=== PATIENT | male | born 1955 | race Caucasian/White ===

== ENCOUNTER 2016-09-30 15:09 | Inpatient (IN) | payer OTHER, MEDICARE ==
--- NOTE | 2016-09-30 15:49 | Diagnostic Imaging Report ---
CHEST X-RAY: AP view INDICATION: Chest pain COMPARISON: None FINDINGS: There is elevation of the right hemidiaphragm. There is no focal consolidation or pleural effusions The heart is normal in size. The osseous structures demonstrate no acute abnormalities. IMPRESSION: No focal acute pulmonary process.
[2016-09-30 16:13] LABS: % BASOPHILS 1.5 % (0.0-2.0); % EOSINOPHILS 0.2 % (0.0-5.0); % LYMPHOCYTES 24.8 % (20.0-50.0); % MONOCYTES 4.4 % (2.0-10.0); % NEUTROPHILS 69.1 % (40.0-80.0); HEMATOCRIT 48.3 % (39.0-49.0); HEMOGLOBIN 16.4 gm/dL (13.2-17.3); MEAN CELL VOLUME 88.7 fl (80-99); MEAN CORPUSCULAR HEMOGLOBIN 30.1 pg (26.0-30.0); MEAN PLATELET VOLUME 7.1 fl; NEUTROPHILE ABSOLUTE 5.7 Th/cmm (1.8-8.0); PLATELET COUNT 336 Th/cmm (150-400); RED BLOOD COUNT 5.44 Mil/cmm (4.30-5.70); RED CELL DISTRIBUTION WIDTH 12.5 % (11.5-20.0); WHITE BLOOD COUNT 8.2 Th/cmm (4.8-10.8)
--- NOTE | 2016-09-30 16:19 | ED Physician Chart ---
Chief Complaint/HPI - Patient Information Date Seen:: 09/30/16 Time Seen:: 16:00 Chief Complaint:: back pain History of Present Illness:: THIS IS A 61 YO MALE BIB EMS WITH RECURRENT SEVERE LOWER BACK PAIN. HE HAS A HISTORY MULTIPLE LEVEL OF LOWER BACK DISC DISEASE. THE PATIENT WAS SEEN A FEW DAYS AGO AT ANOTHER HOSPITAL GIVEN PAIN MEDS AND SENT HOME. THE PATIENT STATES THAT HE HAS HAD CONSTIPATION EVERY SINCE. THIS PATIENT HAS HAD A SIGNIFICANT PROBLEM WITH URINARY WITH HEMATURIA. Allergies:: Allergies Allergy/AdvReac Type Severity Reaction Status Date / Time No Known Allergies Allergy Verified 09/30/16 15:50 Vitals:: Vital Signs - 8 hr 09/30/16 15:51 Temp 97.6 F HR 97 RR 18 BP 124/88 O2 Sat % 99 Historian:: Patient Review:: Nurse's Note Reviewed <Dion Harris - Last Filed: 09/30/16 19:32> - Patient Information Allergies:: Allergies Allergy/AdvReac Type Severity Reaction Status Date / Time No Known Allergies Allergy Verified 09/30/16 15:50 Vitals:: Vital Signs - 8 hr 09/30/16 09/30/16 15:51 18:27 Temp 97.6 F HR 97 70 RR 18 16 BP 124/88 120/68 O2 Sat % 99 97 <Margarito Moody - Last Filed: 09/30/16 20:13> Review of Systems - Review of Systems General/Constitutional: No fever, No chills, No weight loss, No weakness, No diaphoresis, No edema, No loss of appetite Skin: No skin lesions, No rash, No bruising Head: No headache, No light-headedness Eyes: No loss of vision, No pain, No diplopia ENT: No earache, No nasal drainage, No sore throat, No tinnitus Neck: No neck pain, No swelling, No thyromegaly, No stiffness, No mass noted Cardio Vascular: No chest pain, No palpitations, No PND, No orthopnea, No edema Pulmonary: No SOB, No cough, No sputum, No wheezing GI: No nausea, No vomiting, No diarrhea, No pain, No melena, No hematochezia, No constipation, No hematemesis G/U: No dysuria, No frequency, No hematuria Musculoskeletal: Bone or joint pain, Back pain, No muscle pain Endocrine: No polyuria, No polydipsia Psychiatric: No prior psych history, No depression, No anxiety, No suicidal ideation Hematopoietic: No bruising, No lymphadenopathy Allergic/Immuno: No urticaria, No angioedema Neurological: No syncope, No focal symptoms, No weakness, No paresthesia, No headache, No seizure, No dizziness, No confusion, No vertigo <Dion Harris Filed: 09/30/16 19:32> Past Medical History - Past Medical History Obtainable: Yes Past Medical History: HTN, Arthritis Family History: None Social History: Non Smoker, No Alcohol, No Drug Use Surgical History: Appendectomy, Hernia Psychiatricy History: None Medication: Reviewed <Dion Harris Filed: 09/30/16 19:32> Family Medical History - Family Member Mother History Unknown: Yes <Dion Harris Filed: 09/30/16 19:32> Physical Exam - Physical Examination General/Constitutional: Awake, Well-developed, well-nourished, Alert, No distress, GCS 15, Non-toxic appearing, Ambulatory Head: Atraumatic Eyes: Lids, conjuctiva normal, PERRL, EOMI Skin: Nl inspection, No rash, No skin lesions, No ecchymosis, Well hydrated, No lymphadenopathy ENMT: External ears, nose nl, Nasal exam nl, Lips, teeth, gums nl Neck: Nontender, Full ROM w/o pain, No JVD, No nuchal rigidity, No bruit, No mass, No stridor Respiratory: Nl effort/Exclusion, Clear to Auscultation, No Wheeze/Rhonchi/Rales Cardio Vascular: RRR, No murmur, gallop, rubs, NL S1 S2 GI: No tenderness/rebounding/guarding, No organomegaly, No hernia, Normal BS's, Nondistended, No mass/bruits, No McBurney tenderness : No CVA tenderness Extremities: No tenderness or effusion, Full ROM, normal strength in all extremities, No edema, Normal digits & nails Neuro/Psych: Alert/oriented, DTR's symmetric, Normal sensory exam, Normal motor strength, Judgement/insight normal, Mood normal, Normal gait, No focal deficits Misc: No paraspinal tenderness Other Misc comments:: TENDERNESS IN THE LOWER BACK <Dion Harris Filed: 09/30/16 19:32> Labs/Radiology/EKG Results - Lab Results Results: Laboratory Tests 09/30/16 09/30/16 09/30/16 15:48 15:55 15:55 WBC 8.2 RBC 5.44 Hgb 16.4 Hct 48.3 MCV 88.7 MCH 30.1 H MCHC Differential 34.0 RDW 12.5 Plt Count 336 MPV 7.1 Neutrophils % 69.1 Lymphocytes % 24.8 Monocytes % 4.4 Eosinophils % 0.2 Basophils % 1.5 PT 10.7 INR 1.03 PTT (Actin FS) 25.2 L Sodium Potassium Chloride Carbon Dioxide Anion Gap BUN Creatinine Est GFR ( Amer) Est GFR (Non-Af Amer) BUN/Creatinine Ratio Glucose Calcium Total Bilirubin AST ALT Alkaline Phosphatase Troponin I Total Protein Albumin Globulin Albumin/Globulin Ratio Triglycerides 72 Cholesterol 281 H LDL Cholesterol Direct 259 H HDL Cholesterol 32 TSH Urine Source Urine Color Urine Clarity Urine pH Ur Specific [place] Urine Protein Urine Glucose (UA) Urine Ketones Urine Blood Urine Nitrate Urine Bilirubin Urine Urobilinogen Ur Leukocyte Esterase Urine RBC Urine WBC Ur Epithelial Cells Urine Bacteria Urine Mucus RPR 09/30/16 09/30/16 09/30/16 15:55 15:55 15:55 WBC RBC Hgb Hct MCV MCH MCHC Differential RDW Plt Count MPV Neutrophils % Lymphocytes % Monocytes % Eosinophils % Basophils % PT INR PTT (Actin FS) Sodium 134 L Potassium 3.5 Chloride 99 Carbon Dioxide 19.8 L Anion Gap 18.7 H BUN 18 Creatinine 0.7 Est GFR ( Amer) > 60.0 Est GFR (Non-Af Amer) > 60.0 BUN/Creatinine Ratio 25.7 Glucose 93 Calcium 9.1 Total Bilirubin 1.0 AST 10 L ALT 11 Alkaline Phosphatase 60 Troponin I 0.02 Total Protein 7.6 Albumin 4.5 Globulin 3.1 Albumin/Globulin Ratio 1.5 Triglycerides Cholesterol LDL Cholesterol Direct HDL Cholesterol TSH 1.25 Urine Source Urine Color Urine Clarity Urine pH Ur Specific [place] Urine Protein Urine Glucose (UA) Urine Ketones Urine Blood Urine Nitrate Urine Bilirubin Urine Urobilinogen Ur Leukocyte Esterase Urine RBC Urine WBC Ur Epithelial Cells Urine Bacteria Urine Mucus RPR 09/30/16 09/30/16 15:55 18:05 WBC RBC Hgb Hct MCV MCH MCHC Differential RDW Plt Count MPV Neutrophils % Lymphocytes % Monocytes % Eosinophils % Basophils % PT INR PTT (Actin FS) Sodium Potassium Chloride Carbon Dioxide Anion Gap BUN Creatinine Est GFR ( Amer) Est GFR (Non-Af Amer) BUN/Creatinine Ratio Glucose Calcium Total Bilirubin AST ALT Alkaline Phosphatase Troponin I Total Protein Albumin Globulin Albumin/Globulin Ratio Triglycerides Cholesterol LDL Cholesterol Direct HDL Cholesterol TSH Urine Source CLEAN C Urine Color DARK YELLOW Urine Clarity HAZY Urine pH 5.5 Ur Specific [place] Urine Protein 30 H Urine Glucose (UA) NEGATIVE Urine Ketones >=80 H Urine Blood MODERATE H Urine Nitrate NEGATIVE Urine Bilirubin MODERATE H Urine Urobilinogen 0.2 Ur Leukocyte Esterase NEGATIVE Urine RBC 50-100 H Urine WBC 0-2 Ur Epithelial Cells FEW Urine Bacteria FEW Urine Mucus FEW RPR NONREACTIVE <Margarito Moody - Last Filed: 09/30/16 20:13> ED Septic Shock - . Is Septic Shock (SBP<90, OR Lactate>4 mmol\L) present?: No - <6hrs of presentation: Vital Signs: Vital Signs - 8 hr 09/30/16 15:51 Temp 97.6 F HR 97 RR 18 BP 124/88 O2 Sat % 99 <Dion Harris - Last Filed: 09/30/16 19:32> - . Is Septic Shock (SBP<90, OR Lactate>4 mmol\L) present?: No - <6hrs of presentation: Vital Signs: Vital Signs - 8 hr 09/30/16 09/30/16 15:51 18:27 Temp 97.6 F HR 97 70 RR 18 16 BP 124/88 120/68 O2 Sat % 99 97 <Margarito Moody - Last Filed: 09/30/16 20:13> Reassessment (Disposition) - Reassessment Reassessment:: Patient had left nm at change of shift. Acute urinary retention most likely due to enlarged prostate. No sign of infection. Lopes in place. Discussed case with admitting physician. Patient admitted for further workup and treatment. Reassessment Condition:: Improved - Diagnosis Diagnosis:: Acute urinary retention Acute low back pain - Aftercare/Follow up Instructions Aftercare/Follow-Up Instructions:: Counseled pt regarding lab results/diagnosis & need follow up, Refer to Discharge Instructions - Patient Disposition Discharge/Transfer:: Home Admitted to:: Med/Surg Time:: 20:13 Condition at Disposition:: Improved <Margarito Moody - Last Filed: 09/30/16 20:13>
[2016-09-30 16:34] LABS: INR 1.03 (0.5-1.4); PROTHROMBIN TIME (TEST) 10.7 SECONDS (9.5-11.5)
[2016-09-30 16:38] LABS: ALB/GLOB RATIO 1.5 (1.0-1.8); ALKALINE PHOSPHATASE 60 U/L (34-104); ANION GAP 18.7 (7.0-16.0); BUN - UREA NITROGEN 18 mg/dL (7-25); BUN/CREATININE RATIO 25.7; CALCIUM SERUM 9.1 mg/dL (8.6-10.3); CARBON DIOXIDE 19.8 mEq/L (21.0-31.0); CHLORIDE 99 mEq/L (98-107); CREATININE - SERUM 0.7 mg/dL (0.7-1.3); GLUCOSE 93 mg/dL (70-105); POTASSIUM SERUM 3.5 mEq/L (3.5-5.1); SGOT 10 U/L (13-39); SGPT/ALT 11 U/L (7-52); SODIUM SERUM 134 mEq/L (136-145)
[2016-09-30 17:05] LABS: CHOLESTEROL 281 mg/dL (<200); TRIGLYCERIDES 72 mg/dL (<150)
[2016-09-30] MEDS ORDERED: Sodium Chloride 0.9% 1,000 ML IV ONE (18:01)
[2016-09-30 18:49] LABS: URINE BILIRUBIN MODERATE (NEGATIVE); URINE COLOR DARK YELLOW; URINE GLUCOSE (UA) NEGATIVE (NEGATIVE); URINE KETONE >=80 mg/dL (NEGATIVE)
[2016-09-30 18:50] LABS: URINE BACTERIA FEW /hpf (NONE SEEN); URINE BLOOD MODERATE (NEGATIVE); URINE EPITHELIAL CELLS FEW /lpf (FEW); URINE PH 5.5; URINE PROTEIN 30 mg/dL (NEGATIVE); URINE RBC 50-100 /hpf (0-5); URINE UROBILINOGEN 0.2 E.U./dL (0.2 - 1.0); URINE WBC 0-2 /hpf (0-5)
--- NOTE | 2016-09-30 22:02 | Admit Criteria Form ---
Admit Criteria Forms - Admit Criteria Diagnosis: UROLOGIC DISEASE [facility] Clinical Indications for Admission to Inpatient Care (Place ' X' for any and all applicable criteria): Hospital admission is needed for appropriate care of the patient because of 1 or more of the following: [ ]I. New-onset Reduced urine output, or hydronephrosis remaining after emergency or observation level care (as appropriate ) [ ]II. Renal disease needing inpatient care indicated by 1 or more of the following(2)(3)(4): [ ]a) Acute renal failure [ ]b) Significant uremic complications [ ]c) Acute kidney injury (that does not qualify as Acute renal failure ) requiring inpatient care indicated by ALL of the following(5)(6)(7)(8) (9): [ ]i) Worsening clinical status (eg, rising creatinine) despite outpatient and observation care treatment (eg, hydration) [ ]ii) Acute kidney injury indicated by 1 or more of the following: [ ]1) 2-fold or more rise in serum creatinine from baseline [ ]2) Reduction of more than 50% in estimated glomerular filtration rate from baseline [ ]3) Urine output less than 0.5 mL/kg/hr for 12 hours despite adequate volume status [ ]d) Systemic cause (eg, Goodpasture syndrome ) needing inpatient care [ ]e) Rapidly progressive renal disease needing inpatient care (eg, plasmapheresis, immunosuppression ) Anasarca needing inpatient care [ ]f) Hemoptysis [ ]g) Hemolysis, thrombosis, or infraction [ ]h) Anasarca needing inpatient care [ ]III. New-onset or uncontrolled nephrogenic diabetes insipidus [ ]IV. Urologic infection requiring inpatient care as indicated by 1 or more of the following(10)(11)(12): [ ]a) Hemodynamic instability [ ]b) Dehydration that is severe or persistent [ ]c) Failure of outpatient treatment [ ]d) Porter's gangrene [ ]e) Urinary obstruction [ ]f) Immunocompromised state (eg, chronic steroid use ) [ ]g) Known renal or urologic abnormalities(eg, indwelling catheter, structural abnormalities ) [ ]h) Recent urologic manipulation or procedure Urinary obstruction [ ]i) Abscess requiring drainage Immunocompromised state [X]V. Acute urinary retention requiring inpatient management as indicated by ANY ONE of the following(1)(13): [X]a) Retention cannot be alleviated via emergency or observation level care (eg, urinary catheter placement) [ ]b) Hemodynamic instability [ ]c) Acute neurologic etiology (eg, cauda equina) [ ]d) Dehydration or other complications not manageable with emergency or observation level care [ ]e) Acute kidney injury (that does not qualify as Acute renal failure ) requiring inpatient care indicated by ALL of the following(5)(6)(7)(8) (9): [ ]i) Acute kidney injury indicated by ANY ONE of the following: [ ]1) 2-fold or more rise in serum creatinine from baseline [ ]2) Reduction of more than 50% in estimated glomerular filtration rate from baseline [ ]ii) Worsening clinical status (eg, rising creatinine) despite outpatient and observation care treatment (eg, hydration) [ ]. Gross hematuria requiring inpatient management as indicated by ANY ONE of the following(1)(2): [ ]a) Evidence of renal obstruction [ ]b) Reduced urine output [ ]c) Clot retention after urinary catheterization and irrigation [ ]d) Severe Anemia [ ]e) Systemic cause needing inpatient treatment (eg, Goodpasture syndrome) [ ]VII. Priapism not responsive to emergency or observation care treatment [ ]VII. Scrotal, testicular, or epididymal disorder requiring inpatient care indicated by 1 or more of the following(1)(14)(15)(16): [ ]a) Scrotal edema or infection not manageable with emergency or observation level care [ ]b) Orchitis not manageable with emergency or observation level care [ ]c) Epididymitis not manageable with emergency or observation level of care [ ]d) Other scrotal, testicular, or epididymal disorder (eg, infection, inflammation) not manageable with emergency or observation level care [ ]IX. Complications of transplanted kidney indicated by 1 or more of the following [ ]a) Acute graft rejection requiring inpatient management (eg, intravenous immunosuppression) [ ]b) Acute kidney injury indicated by ALL of the following i) Acute kidney injury indicated by 1 or more of the following 1) 2-fold or more rise in serum creatinine from baseline 2) Reduction of more than 50% in estimated glomerular filtration rate from baseline 3) Urine output less than 0.5 mL/kg/hr for 12 hours despite adequate volume status ii) Kidney injury too severe or not responsive to outpatient and observation care treatment (eg, hydration) [ ]c) Infection requiring inpatient management (eg, Hemodynamic instability, need for intravenous antimicrobial treatment) [ ]d) Other complication of transplanted kidney requiring patient management (eg, severe diarrhea leading to malabsorption) [ ]X. Trauma to renal, genital, or urologic system requiring inpatient medical care [ ]XI. Urologic Disease condition, symptom, or finding for which emergency and observation care have failed or are not considered appropriate. The original [facility] [employer] content created by [facility] [employer] has been revised. The portions of the content which have been revised are identified through the use of italic text or in bold, and [facility] has neither reviewed nor approved the modified material. All other unmodified content is copyright [facility] [employer]. Please see references footnoted in the original [facility] [employer] edition 2016 Admit Criteria Met?: Yes
[2016-09-30] MEDS ORDERED: D5-0.45NS 1,000 ML IV SCH (22:15)
[2016-10-01 00:24] VITALS: BP 122/73
[2016-10-01 05:57] LABS: MEAN CELL VOLUME 89.3 fl (80-99)
[2016-10-01 06:02] LABS: HEMATOCRIT 47.2 % (39.0-49.0); MEAN CORPUSCULAR HEMOGLOBIN 30.2 pg (26.0-30.0); MEAN CORPUSCULAR HGB CONC 33.8 pg (28.0-36.0); MEAN PLATELET VOLUME 7.9 fl; RED BLOOD COUNT 5.28 Mil/cmm (4.30-5.70); RED CELL DISTRIBUTION WIDTH 12.7 % (11.5-20.0); WHITE BLOOD COUNT 9.1 Th/cmm (4.8-10.8)
[2016-10-01 06:08] LABS: PLATELET COUNT 200 Th/cmm (150-400)
[2016-10-01 06:10] LABS: ANION GAP 13.5 (7.0-16.0); BUN - UREA NITROGEN 21 mg/dL (7-25); CALCIUM SERUM 8.8 mg/dL (8.6-10.3); CARBON DIOXIDE 19.8 mEq/L (21.0-31.0); CHLORIDE 101 mEq/L (98-107); CREATININE - SERUM 0.7 mg/dL (0.7-1.3); GLUCOSE 115 mg/dL (70-105); POTASSIUM SERUM 3.3 mEq/L (3.5-5.1); SODIUM SERUM 131 mEq/L (136-145)
[2016-10-01 06:39] LABS: EOSINOPHIL 1 % (0-5); NEUTROPHILS 66 % (40-80); PLATELET ESTIMATE ADEQUATE (NORMAL); TOTAL CELLS COUNTED 100
[2016-10-01] MEDS ORDERED: Pneumococcal Vaccine 0.5 mL Vial IM ONE (10:32)
--- NOTE | 2016-10-01 10:59 | Diagnostic Imaging Report ---
CT lumbar spine without IV contrast HISTORY: Trauma COMPARISON: Pelvis CT the same day Technique: Axial images were obtained from the lower thoracic spine to the upper sacrum without IV contrast. Reconstructions were made. total DLP: [id number], [id number] Findings: Images of the lumbar spine obtained without contrast demonstrate no evidence of acute fracture or subluxation. Osteopenia is noted. Moderate degenerative changes are seen including moderate disc space loss of height at L4/L5 and mild disc space loss of height at L2/L3 and L3/L4. Multilevel moderate to advanced facet degenerative changes are noted. There is 3 to 4 mm posterior disc osteophyte complex that L4/L5 causing mild spinal canal narrowing. There is also 3 mm protrusion at L5/S1 causing mild spinal canal narrowing. Multilevel neural foraminal encroachment is also seen secondary to facet arthropathy. The visualized retroperitoneum demonstrates mild atherosclerotic vascular disease. IMPRESSION: No evidence of acute fracture or subluxation. Multilevel degenerative changes, greatest at L4/L5. Osteopenia Atherosclerotic vascular disease.
--- NOTE | 2016-10-01 11:02 | Diagnostic Imaging Report ---
CT pelvis without IV contrast HISTORY: Pain, rule out fracture COMPARISON: CT lumbar spine the same day Technique: Axial images were obtained from the lower abdomen to the proximal bilateral femurs without IV contrast. Reconstructions were made. total DLP: 546, CTDI12.5 Findings: Lopes catheter is seen within the urinary bladder. Pockets of gas are seen along the anterior aspect of the urinary bladder. Small fat-containing left inguinal hernia is noted. Degenerative changes of lower lumbar spine are also noted. Mild degenerative changes of both hip joints are noted. Degenerative changes of SI joints are noted. No evidence of acute fracture or dislocation. IMPRESSION: No evidence of acute fracture. Degenerative changes. Small fat-containing left inguinal hernia. Lopes catheter noted within the urinary bladder. Pockets of gas is also seen along the anterior aspect of the urinary bladder which may be due to instrumentation.
--- NOTE | 2016-10-01 12:09 | Diagnostic Imaging Report ---
Renal ultrasound HISTORY: Hydronephrosis, pyelonephritis COMPARISON: CT lumbar spine on 09/30/2016 Technique: Sonography of the kidneys and urinary bladder was performed in multiple planes. FINDINGS: Exam is limited due to body habitus. The right kidney measures 12.6 x 5.9 cm. The left kidney measures 12.0 x 5.8 cm. There is poor visualization of the renal margins limiting assessment for focal lesions. No evidence of hydronephrosis. Lopes catheter seen within underdistended urinary bladder, limiting its evaluation. The post void residual bladder volume with patient's Lopes catheter 78 mL's. IMPRESSION: Limited exam due to body habitus. No evidence of hydronephrosis Mild increased size of the right kidney, nonspecific Lopes catheter within underdistended urinary bladder. The postvoid residual bladder volume with patient's Lopes catheter was 78 mL's. The significance of this findings should be correlated clinically.
--- NOTE | 2016-10-01 12:10 | Diagnostic Imaging Report ---
Ultrasound pelvic, limited History: BPH Comparison: Renal ultrasound the same day and pelvic CT examination on 09/30/2016 Findings: Sonography of the prostate gland was performed in multiple planes. The prostate gland measures 5.2 x 4.5 x 4.8 cm and demonstrates a heterogeneous echotexture. There is echogenic focus within the prostate gland measuring 9 mm. IMPRESSION: Heterogeneous and mildly prominent prostate gland with echogenic focus likely representing a calcification. Please correlate with clinical findings and PSA levels.
--- NOTE | 2016-10-01 13:23 | General Progress Note ---
Subjective - Review of Systems Service Date: 10/01/16 Subjective: pt is c/o: insomnia no other complaints at this time Objective - Results Result Diagrams: 10/01/16 05:26 10/01/16 05:26 Recent Labs: Laboratory Last Values WBC 9.1 Th/cmm (4.8-10.8) 10/01/16 05:26 RBC 5.28 Mil/cmm (4.30-5.70) 10/01/16 05:26 Hgb 16.0 gm/dL (13.2-17.3) 10/01/16 05:26 Hct 47.2 % (39.0-49.0) 10/01/16 05:26 MCV 89.3 fl (80-99) 10/01/16 05:26 MCH 30.2 pg (26.0-30.0) H 10/01/16 05:26 MCHC Differential 33.8 pg (28.0-36.0) 10/01/16 05:26 RDW 12.7 % (11.5-20.0) 10/01/16 05:26 Plt Count 200 Th/cmm (150-400) D 10/01/16 05:26 MPV 7.9 fl 10/01/16 05:26 Neutrophils % 69.1 % (40.0-80.0) 09/30/16 15:55 Lymphocytes % 24.8 % (20.0-50.0) 09/30/16 15:55 Monocytes % 4.4 % (2.0-10.0) 09/30/16 15:55 Eosinophils % 0.2 % (0.0-5.0) 09/30/16 15:55 Basophils % 1.5 % (0.0-2.0) 09/30/16 15:55 Neutrophils (Manual) 66 % (40-80) 10/01/16 05:26 Lymphocytes 26 % (20-50) 10/01/16 05:26 Monocytes 7 % (2-10) 10/01/16 05:26 Eosinophils 1 % (0-5) 10/01/16 05:26 Platelet Estimate ADEQUATE (NORMAL) 10/01/16 05:26 PT 10.7 SECONDS (9.5-11.5) 09/30/16 15:55 INR 1.03 (0.5-1.4) 09/30/16 15:55 PTT (Actin FS) 25.2 SECONDS (26.0-38.0) L 09/30/16 15:55 Sodium 131 mEq/L (136-145) L 10/01/16 05:26 Potassium 3.3 mEq/L (3.5-5.1) L 10/01/16 05:26 Chloride 101 mEq/L (98-107) 10/01/16 05:26 Carbon Dioxide 19.8 mEq/L (21.0-31.0) L 10/01/16 05:26 Anion Gap 13.5 (7.0-16.0) 10/01/16 05:26 BUN 21 mg/dL (7-25) 10/01/16 05:26 Creatinine 0.7 mg/dL (0.7-1.3) 10/01/16 05:26 Est GFR ( Amer) > 60.0 ml/min (>90) 10/01/16 05:26 Est GFR (Non-Af Amer) > 60.0 ml/min 10/01/16 05:26 BUN/Creatinine Ratio 30.0 10/01/16 05:26 Glucose 115 mg/dL (70-105) H 10/01/16 05:26 Calcium 8.8 mg/dL (8.6-10.3) 10/01/16 05:26 Total Bilirubin 1.0 mg/dL (0.3-1.0) 09/30/16 15:55 AST 10 U/L (13-39) L 09/30/16 15:55 ALT 11 U/L (7-52) 09/30/16 15:55 Alkaline Phosphatase 60 U/L (34-104) 09/30/16 15:55 Troponin I 0.02 ng/mL (0.01-0.05) 09/30/16 15:55 Total Protein 7.6 gm/dL (6.0-8.3) 09/30/16 15:55 Albumin 4.5 gm/dL (4.2-5.5) 09/30/16 15:55 Globulin 3.1 gm/dL 09/30/16 15:55 Albumin/Globulin Ratio 1.5 (1.0-1.8) 09/30/16 15:55 Triglycerides 72 mg/dL (<150) 09/30/16 15:48 Cholesterol 281 mg/dL (<200) H 09/30/16 15:48 LDL Cholesterol Direct 259 mg/dL (75-193) H 09/30/16 15:48 HDL Cholesterol 32 mg/dL (23-92) 09/30/16 15:48 TSH 1.25 uIU/ml (0.34-5.60) 09/30/16 15:55 Urine Source CLEAN C 09/30/16 18:05 Urine Color DARK YELLOW 09/30/16 18:05 Urine Clarity HAZY (CLEAR) 09/30/16 18:05 Urine pH 5.5 09/30/16 18:05 Ur Specific [place] (1.005-1.030) 09/30/16 18:05 Urine Protein 30 mg/dL (NEGATIVE) H 09/30/16 18:05 Urine Glucose (UA) NEGATIVE mg/dL (NEGATIVE) 09/30/16 18:05 Urine Ketones >=80 mg/dL (NEGATIVE) H 09/30/16 18:05 Urine Blood MODERATE (NEGATIVE) H 09/30/16 18:05 Urine Nitrate NEGATIVE (NEGATIVE) 09/30/16 18:05 Urine Bilirubin MODERATE (NEGATIVE) H 09/30/16 18:05 Urine Urobilinogen 0.2 E.U./dL (0.2 - 1.0) 09/30/16 18:05 Ur Leukocyte Esterase NEGATIVE (NEGATIVE) 09/30/16 18:05 Urine RBC 50-100 /hpf (0-5) H 09/30/16 18:05 Urine WBC 0-2 /hpf (0-5) 09/30/16 18:05 Ur Epithelial Cells FEW /lpf (FEW) 09/30/16 18:05 Urine Bacteria FEW /hpf (NONE SEEN) 09/30/16 18:05 Urine Mucus FEW /lpf (FEW) 09/30/16 18:05 RPR NONREACTIVE (NONREACTIVE) 09/30/16 15:55 - Physical Exam Vitals and I&O: Vital Signs Temp 98.2 F 10/01/16 11:39 Pulse 80 10/01/16 11:39 Resp 17 10/01/16 11:39 BP 128/64 10/01/16 11:39 Pulse Ox 98 10/01/16 11:39 Intake & Output 04/10/01/16 10/01/16 18:59 06:59 18:59 Intake Total 200 Output Total 275 Balance -75 Intake: Oral 200 Output: Urine 275 Active Medications: Current Medications Benazepril HCl (Lotensin) 20 mg PO BID OSBALDO Stop: 11/30/16 09:44 Last Admin: 10/01/16 10:44 Dose: 20 mg Clonazepam (Klonopin) 1 mg PO Q8H PRN; Protocol PRN Reason: Anxiety Stop: 11/30/16 09:44 Last Admin: 10/01/16 10:43 Dose: 1 mg Dextrose/Sodium Chloride (D5-0.45ns) 1,000 mls @ 75 mls/hr IV .[id number] OSBALDO Stop: 11/29/16 22:14 Last Admin: 09/30/16 22:33 Dose: 75 mls/hr Morphine Sulfate (Morphine) 2 mg IVP Q6HR PRN PRN Reason: Severe Pain Stop: 11/29/16 22:12 Ondansetron HCl (Zofran) 4 mg IV Q6H PRN PRN Reason: Nausea / Vomiting Stop: 11/29/16 22:14 Tramadol HCl (Ultram) 50 mg PO Q6HR PRN PRN Reason: moderate pain Stop: 11/29/16 22:11 Last Admin: 10/01/16 08:24 Dose: 50 mg Zolpidem Tartrate (Ambien) 10 mg PO HS PRN PRN Reason: Insomnia Stop: 11/29/16 22:27 Last Admin: 09/30/16 23:42 Dose: 10 mg
--- NOTE | 2016-10-01 14:22 | History & Physical ---
ADMIT DATE: 10/01/2016 HISTORY OF PRESENT ILLNESS: I saw him now. A 61-year-old male patient with low back pain has a history of multiple lumbar disease and the patient was complaining of hematuria. The patient was ____ Lopes catheter and was admitted. PAST MEDICAL HISTORY: The patient has history of arthritis and history of hypertension. PHYSICAL EXAMINATION: GENERAL: The patient is awake, alert, well-nourished male. HEAD: Normal. ENT: Normal. NECK: Supple, nontender. LUNGS: Clear. CARDIOVASCULAR SYSTEM: S1, S2 heard. ABDOMEN: Soft. Bowel sounds are heard. CENTRAL NERVOUS SYSTEM: Grossly normal. LABORATORY DATA: His white count was normal, hemoglobin is 16.4, hematocrit was normal. Electrolytes were okay. DIAGNOSES: Urinary tract infection with hematuria, history of low back pain, ____, and history of hypertension. The patient will get 1 mg of Rocephin and I will have Dr. Whalen see the patient and also Urology see the patient. JOB# [id number]
[2016-10-01] MEDS: Maalox 30 mL Cup PO PRN (17:16)
[2016-10-01] MEDS: Pantoprazole 40 mg EC Tab PO SCH (17:17)
--- NOTE | 2016-10-01 18:26 | Infectious Disease Prog Note ---
Infectious Disease Subjective - Review of Systems Service Date: 10/01/16 Subjective: Pelvic ultrasound was performed. showed enlarged prostate. Infectious Disease Objective - Results Result Diagrams: 10/01/16 05:26 10/01/16 05:26 Recent Labs: Laboratory Last Values WBC 9.1 Th/cmm (4.8-10.8) 10/01/16 05:26 RBC 5.28 Mil/cmm (4.30-5.70) 10/01/16 05:26 Hgb 16.0 gm/dL (13.2-17.3) 10/01/16 05:26 Hct 47.2 % (39.0-49.0) 10/01/16 05:26 MCV 89.3 fl (80-99) 10/01/16 05:26 MCH 30.2 pg (26.0-30.0) H 10/01/16 05:26 MCHC Differential 33.8 pg (28.0-36.0) 10/01/16 05:26 RDW 12.7 % (11.5-20.0) 10/01/16 05:26 Plt Count 200 Th/cmm (150-400) D 10/01/16 05:26 MPV 7.9 fl 10/01/16 05:26 Neutrophils % 69.1 % (40.0-80.0) 09/30/16 15:55 Lymphocytes % 24.8 % (20.0-50.0) 09/30/16 15:55 Monocytes % 4.4 % (2.0-10.0) 09/30/16 15:55 Eosinophils % 0.2 % (0.0-5.0) 09/30/16 15:55 Basophils % 1.5 % (0.0-2.0) 09/30/16 15:55 Neutrophils (Manual) 66 % (40-80) 10/01/16 05:26 Lymphocytes 26 % (20-50) 10/01/16 05:26 Monocytes 7 % (2-10) 10/01/16 05:26 Eosinophils 1 % (0-5) 10/01/16 05:26 Platelet Estimate ADEQUATE (NORMAL) 10/01/16 05:26 PT 10.7 SECONDS (9.5-11.5) 09/30/16 15:55 INR 1.03 (0.5-1.4) 09/30/16 15:55 PTT (Actin FS) 25.2 SECONDS (26.0-38.0) L 09/30/16 15:55 Sodium 131 mEq/L (136-145) L 10/01/16 05:26 Potassium 3.3 mEq/L (3.5-5.1) L 10/01/16 05:26 Chloride 101 mEq/L (98-107) 10/01/16 05:26 Carbon Dioxide 19.8 mEq/L (21.0-31.0) L 10/01/16 05:26 Anion Gap 13.5 (7.0-16.0) 10/01/16 05:26 BUN 21 mg/dL (7-25) 10/01/16 05:26 Creatinine 0.7 mg/dL (0.7-1.3) 10/01/16 05:26 Est GFR ( Amer) > 60.0 ml/min (>90) 10/01/16 05:26 Est GFR (Non-Af Amer) > 60.0 ml/min 10/01/16 05:26 BUN/Creatinine Ratio 30.0 10/01/16 05:26 Glucose 115 mg/dL (70-105) H 10/01/16 05:26 Calcium 8.8 mg/dL (8.6-10.3) 10/01/16 05:26 Total Bilirubin 1.0 mg/dL (0.3-1.0) 09/30/16 15:55 AST 10 U/L (13-39) L 09/30/16 15:55 ALT 11 U/L (7-52) 09/30/16 15:55 Alkaline Phosphatase 60 U/L (34-104) 09/30/16 15:55 Troponin I 0.02 ng/mL (0.01-0.05) 09/30/16 15:55 Total Protein 7.6 gm/dL (6.0-8.3) 09/30/16 15:55 Albumin 4.5 gm/dL (4.2-5.5) 09/30/16 15:55 Globulin 3.1 gm/dL 09/30/16 15:55 Albumin/Globulin Ratio 1.5 (1.0-1.8) 09/30/16 15:55 Triglycerides 72 mg/dL (<150) 09/30/16 15:48 Cholesterol 281 mg/dL (<200) H 09/30/16 15:48 LDL Cholesterol Direct 259 mg/dL (75-193) H 09/30/16 15:48 HDL Cholesterol 32 mg/dL (23-92) 09/30/16 15:48 TSH 1.25 uIU/ml (0.34-5.60) 09/30/16 15:55 Urine Source CLEAN C 09/30/16 18:05 Urine Color DARK YELLOW 09/30/16 18:05 Urine Clarity HAZY (CLEAR) 09/30/16 18:05 Urine pH 5.5 09/30/16 18:05 Ur Specific [place] (1.005-1.030) 09/30/16 18:05 Urine Protein 30 mg/dL (NEGATIVE) H 09/30/16 18:05 Urine Glucose (UA) NEGATIVE mg/dL (NEGATIVE) 09/30/16 18:05 Urine Ketones >=80 mg/dL (NEGATIVE) H 09/30/16 18:05 Urine Blood MODERATE (NEGATIVE) H 09/30/16 18:05 Urine Nitrate NEGATIVE (NEGATIVE) 09/30/16 18:05 Urine Bilirubin MODERATE (NEGATIVE) H 09/30/16 18:05 Urine Urobilinogen 0.2 E.U./dL (0.2 - 1.0) 09/30/16 18:05 Ur Leukocyte Esterase NEGATIVE (NEGATIVE) 09/30/16 18:05 Urine RBC 50-100 /hpf (0-5) H 09/30/16 18:05 Urine WBC 0-2 /hpf (0-5) 09/30/16 18:05 Ur Epithelial Cells FEW /lpf (FEW) 09/30/16 18:05 Urine Bacteria FEW /hpf (NONE SEEN) 09/30/16 18:05 Urine Mucus FEW /lpf (FEW) 09/30/16 18:05 RPR NONREACTIVE (NONREACTIVE) 09/30/16 15:55 - Physical Exam Vitals and I&O: Vital Signs Temp 97.8 F 10/01/16 15:31 Pulse 95 10/01/16 17:20 Resp 18 10/01/16 15:31 BP 113/76 10/01/16 17:20 Pulse Ox 99 10/01/16 15:31 Intake & Output 04/10/01/16 10/01/16 18:59 06:59 18:59 Intake Total 200 Output Total 275 Balance -75 Intake: Oral 200 Output: Urine 275 Active Medications: Current Medications Al Hydrox/Mg Hydrox/Simethicone (Maalox) 30 ml PO Q6HR PRN PRN Reason: Abdominal Cramping Stop: 11/30/16 15:34 Last Admin: 10/01/16 17:16 Dose: 30 ml Benazepril HCl (Lotensin) 20 mg PO BID [facility] Stop: 11/30/16 09:44 Last Admin: 10/01/16 17:20 Dose: Not Given Clonazepam (Klonopin) 1 mg PO Q8H PRN; Protocol PRN Reason: Anxiety Stop: 11/30/16 09:44 Last Admin: 10/01/16 10:43 Dose: 1 mg Morphine Sulfate (Morphine) 2 mg IVP Q6HR PRN PRN Reason: Severe Pain Stop: 11/29/16 22:12 Ondansetron HCl (Zofran) 4 mg IV Q6H PRN PRN Reason: Nausea / Vomiting Stop: 11/29/16 22:14 Pantoprazole Sodium (Protonix) 40 mg PO DAILY [facility] Stop: 11/30/16 15:44 Last Admin: 10/01/16 17:17 Dose: 40 mg Tramadol HCl (Ultram) 50 mg PO Q6HR PRN PRN Reason: moderate pain Stop: 11/29/16 22:11 Last Admin: 10/01/16 15:09 Dose: 50 mg Zolpidem Tartrate (Ambien) 10 mg PO HS PRN PRN Reason: Insomnia Stop: 11/29/16 22:27 Last Admin: 09/30/16 23:42 Dose: 10 mg General: no acute distress, well developed, well nourished HEENT: atraumatic, normocephalic, PERRLA, EOMI, moist mucous membrane Neck: supple Cardiovascular: S1S2, regular Lungs: clear to auscultation bilaterally, clear to percussion Abdomen: soft, no tender, no distended Extremities: no cyanosis, no clubbing, no edema Neurological: awake, alert, oriented, CN 2-12 intact Skin: intact Infectious Disease Assmt/Plan - Assessment Assessment: Impression: 1. BPH 2. Hematuria. 3. HTN. Recommendations: Continue the same treatment.
--- NOTE | 2016-10-02 00:04 | Consultation ---
DATE OF CONSULTATION: 09/30/2016 REFERRING PHYSICIAN: Dr. Gilbert Galvez. REASON FOR CONSULTATION: Suspected UTI. HISTORY OF PRESENT ILLNESS: The patient is a 61-year-old male with a past medical history of severe back pain causing weakness of both lower extremities and using can for the ambulation, hypertension and recent history of urinary retention, went to [facility] ER for further evaluation and management for his back pain and difficulty urinating. However, lab work and evaluation performed and he was discharged home in stable condition saying everything was fine. However, he has severe back pain intolerable. He came to the ER for further evaluation and management. On initial evaluation, the patient was afebrile with temperature 97.6 degrees Fahrenheit and WBC count was 8200. A Lopes catheter was put in and 30 mL of urine came out. Urinalysis showed hematuria and bacteriuria. ID consult was called for the antibiotic management. Meanwhile, the patient had received Rocephin 1 g one dose. ALLERGIES: NKDA. MEDICATIONS: See medication reconciliation sheet. Antibiotics none. The patient received Rocephin 1 mg IV one dose in the ER. PAST MEDICAL HISTORY: Includes hypertension, DJD and arthritis. The patient uses can for the ambulation. PAST SURGICAL HISTORY: Appendectomy and hernia repair. SOCIAL HISTORY: The patient lives at home. Denies any smoking, alcohol or drug use. The patient is retired since age 45. 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 FAMILY HISTORY: Noncontributory. REVIEW OF SYSTEMS: GENERAL: The patient denies any fever or chills. Denies any weight loss. HEENT: The patient denies any diplopia, photophobia, sore throat or congestion. RESPIRATORY: The patient denies any cough or shortness of breath. CVS: No chest pain, but no palpitation. GASTROINTESTINAL: No nausea, no vomiting, no diarrhea and no constipation. GENITOURINARY: The patient has no dysuria, but the patient has low urine output. Recently, the patient started with dribbling of the urine with no force and no stream. MUSCULOSKELETAL: No muscle pain and no joint pain. NEUROLOGICAL: No headache, no dizziness. The patient has paraparesis because of the pain in the back. PAST PSYCHIATRIC HISTORY: No depression. PHYSICAL EXAMINATION: CURRENT VITAL SIGNS: Shows temperature is 98.4, pulse 80, respiration is 20 and blood pressure 122/73. GENERAL: The patient is comfortable lying in the bed, well nourished, well developed. HEENT: Head is normocephalic, atraumatic. Oral cavity moist, pink tongue. Eyes: PERRLA. No pallor, no icterus. EOMI. NECK: Supple. No JVD and no carotid bruit. Trachea in midline. CHEST: Bilateral breath sounds. No crackles or wheezing. CARDIOVASCULAR: S1 and S2 within normal limits. Regular rhythm. No murmur and no gallop. ABDOMEN: Soft, nontender and nondistended. Bowel sounds present. EXTREMITIES: No cyanosis, no clubbing and no edema. NEUROLOGIC: Alert, awake and oriented x 3. The patient has lower extremity examination that could not be performed because of severe pain. He is reluctant to go for further examination because of the pain. LABORATORY DATA: WBC count 8200, hemoglobin 16.4, hematocrit 48.3, platelets are 356,000 and neutrophils 69.1%. INR 1.03, sodium is 134, potassium 3.5, chloride 99, bicarb is 19.8, BUN is 18, creatinine 0.7 and glucose is 93. TSH 1.23. Urinalysis showed moderate blood with moderate bilirubin, RBC 50-100 and wbc's 0-2. RPR is nonreactive. CHEST X-RAY: Shows no active disease. IMPRESSION: 1. Hematuria, suspect. 2. Urinary retention or low urine output with normal creatinine, suspect BPH versus neurogenic bladder. 3. Paraparesis. 4. Severe low back pain. 5. Hypertension. RECOMMENDATION AND TREATMENT: Neurologic consultation for evaluation of lower extremity weakness. Check pelvic ultrasound plus check renal ultrasound. Thank you Dr. Galvez for involving me in taking care of this patient. JOB# [id number]
--- NOTE | 2016-10-02 07:35 | Consultation ---
DATE OF CONSULTATION: 10/02/2016 PHYSICIAN: Dr. Galvez. NIPPLE MAKER: Dr. Oliva. CHIEF COMPLAINT: "I am angry." HISTORY OF PRESENT ILLNESS: The patient is a 61-year-old male who has been complaining of increased pain. The patient said that he has been angry and has been depressed because he has not been able to do anything with his life and he has not able to go to store because of his anger. The patient also has been easily agitated. At the same time, the patient has been cooperative with his treatment so far. He just gets demanding when he needs anything from the staff and he gets easily____. PAST PSYCHIATRIC HISTORY: The patient denies any history of psychiatric treatment. PAST MEDICAL HISTORY: The patient was admitted to the hospital with pain in his knees. He said that the pain medication has not been helping ____ has not been helping so far. SOCIAL HISTORY: The patient denies any alcohol or any street drug use. MENTAL STATUS EXAM: The patient appears older than his stated age. Anxious. Cooperative. Sad affect. Mood not depressed nor elated. Thought processes are mainly goal directed. The patient denies hallucinations or delusions and he denies any thoughts of suicide or homicide. The patient is alert and oriented to time, place, person, and situation. Intact immediate, recent and remote memories. Fair insight. Fair judgment. He seems to be of average intelligence based on his verbal ability. ASSESSMENT AND PRIMARY DIAGNOSIS: Major depression, moderate, single episode, without psychotic features. TREATMENT PLAN: We will start the patient on Cymbalta 30 mg everyday and we will adjust the dose. We will start individual as well as milieu psychotherapy. We will monitor psychotropic medications. ESTIMATED LENGTH OF STAY: 5-[address] Galvez and we will follow up with you. JOB# [id number]
[2016-10-02] MEDS: Morphine Sulfate 2 mg/mL 1mL Syr IVP PRN ×3 (08:38→21:20)
[2016-10-02] MEDS: Pantoprazole 40 mg EC Tab PO SCH (08:38)
--- NOTE | 2016-10-02 16:19 | General Progress Note ---
Subjective - Review of Systems Subjective: Pt. c/o's of hematuria/pain Objective - Results Result Diagrams: 10/01/16 05:26 10/01/16 05:26 Recent Labs: Laboratory Last Values WBC 9.1 Th/cmm (4.8-10.8) 10/01/16 05:26 RBC 5.28 Mil/cmm (4.30-5.70) 10/01/16 05:26 Hgb 16.0 gm/dL (13.2-17.3) 10/01/16 05:26 Hct 47.2 % (39.0-49.0) 10/01/16 05:26 MCV 89.3 fl (80-99) 10/01/16 05:26 MCH 30.2 pg (26.0-30.0) H 10/01/16 05:26 MCHC Differential 33.8 pg (28.0-36.0) 10/01/16 05:26 RDW 12.7 % (11.5-20.0) 10/01/16 05:26 Plt Count 200 Th/cmm (150-400) D 10/01/16 05:26 MPV 7.9 fl 10/01/16 05:26 Neutrophils % 69.1 % (40.0-80.0) 09/30/16 15:55 Lymphocytes % 24.8 % (20.0-50.0) 09/30/16 15:55 Monocytes % 4.4 % (2.0-10.0) 09/30/16 15:55 Eosinophils % 0.2 % (0.0-5.0) 09/30/16 15:55 Basophils % 1.5 % (0.0-2.0) 09/30/16 15:55 Neutrophils (Manual) 66 % (40-80) 10/01/16 05:26 Lymphocytes 26 % (20-50) 10/01/16 05:26 Monocytes 7 % (2-10) 10/01/16 05:26 Eosinophils 1 % (0-5) 10/01/16 05:26 Platelet Estimate ADEQUATE (NORMAL) 10/01/16 05:26 PT 10.7 SECONDS (9.5-11.5) 09/30/16 15:55 INR 1.03 (0.5-1.4) 09/30/16 15:55 PTT (Actin FS) 25.2 SECONDS (26.0-38.0) L 09/30/16 15:55 Sodium 131 mEq/L (136-145) L 10/01/16 05:26 Potassium 3.3 mEq/L (3.5-5.1) L 10/01/16 05:26 Chloride 101 mEq/L (98-107) 10/01/16 05:26 Carbon Dioxide 19.8 mEq/L (21.0-31.0) L 10/01/16 05:26 Anion Gap 13.5 (7.0-16.0) 10/01/16 05:26 BUN 21 mg/dL (7-25) 10/01/16 05:26 Creatinine 0.7 mg/dL (0.7-1.3) 10/01/16 05:26 Est GFR ( Amer) > 60.0 ml/min (>90) 10/01/16 05:26 Est GFR (Non-Af Amer) > 60.0 ml/min 10/01/16 05:26 BUN/Creatinine Ratio 30.0 10/01/16 05:26 Glucose 115 mg/dL (70-105) H 10/01/16 05:26 Calcium 8.8 mg/dL (8.6-10.3) 10/01/16 05:26 Total Bilirubin 1.0 mg/dL (0.3-1.0) 09/30/16 15:55 AST 10 U/L (13-39) L 09/30/16 15:55 ALT 11 U/L (7-52) 09/30/16 15:55 Alkaline Phosphatase 60 U/L (34-104) 09/30/16 15:55 Troponin I 0.02 ng/mL (0.01-0.05) 09/30/16 15:55 Total Protein 7.6 gm/dL (6.0-8.3) 09/30/16 15:55 Albumin 4.5 gm/dL (4.2-5.5) 09/30/16 15:55 Globulin 3.1 gm/dL 09/30/16 15:55 Albumin/Globulin Ratio 1.5 (1.0-1.8) 09/30/16 15:55 Triglycerides 72 mg/dL (<150) 09/30/16 15:48 Cholesterol 281 mg/dL (<200) H 09/30/16 15:48 LDL Cholesterol Direct 259 mg/dL (75-193) H 09/30/16 15:48 HDL Cholesterol 32 mg/dL (23-92) 09/30/16 15:48 Prostate Specific Ag 0.1 ng/mL (0.0-4.0) 10/01/16 05:26 TSH 1.25 uIU/ml (0.34-5.60) 09/30/16 15:55 Urine Source CLEAN C 09/30/16 18:05 Urine Color DARK YELLOW 09/30/16 18:05 Urine Clarity HAZY (CLEAR) 09/30/16 18:05 Urine pH 5.5 09/30/16 18:05 Ur Specific [place] (1.005-1.030) 09/30/16 18:05 Urine Protein 30 mg/dL (NEGATIVE) H 09/30/16 18:05 Urine Glucose (UA) NEGATIVE mg/dL (NEGATIVE) 09/30/16 18:05 Urine Ketones >=80 mg/dL (NEGATIVE) H 09/30/16 18:05 Urine Blood MODERATE (NEGATIVE) H 09/30/16 18:05 Urine Nitrate NEGATIVE (NEGATIVE) 09/30/16 18:05 Urine Bilirubin MODERATE (NEGATIVE) H 09/30/16 18:05 Urine Urobilinogen 0.2 E.U./dL (0.2 - 1.0) 09/30/16 18:05 Ur Leukocyte Esterase NEGATIVE (NEGATIVE) 09/30/16 18:05 Urine RBC 50-100 /hpf (0-5) H 09/30/16 18:05 Urine WBC 0-2 /hpf (0-5) 09/30/16 18:05 Ur Epithelial Cells FEW /lpf (FEW) 09/30/16 18:05 Urine Bacteria FEW /hpf (NONE SEEN) 09/30/16 18:05 Urine Mucus FEW /lpf (FEW) 09/30/16 18:05 RPR NONREACTIVE (NONREACTIVE) 09/30/16 15:55 - Physical Exam Vitals and I&O: Vital Signs Temp 97.2 F 10/02/16 15:50 Pulse 84 10/02/16 15:50 Resp 20 10/02/16 15:50 BP 103/60 10/02/16 15:50 Pulse Ox 96 10/02/16 15:50 Intake & Output 10/01/16 10/02/16 10/02/16 18:59 06:59 18:59 Intake Total 700 250 Output Total 650 250 Balance 50 0 Intake: Oral 700 250 Output: Urine 650 250 Other: # Bowel Movements 4 Active Medications: Current Medications Al Hydrox/Mg Hydrox/Simethicone (Maalox) 30 ml PO Q6HR PRN PRN Reason: Abdominal Cramping Stop: 11/30/16 15:34 Last Admin: 10/01/16 17:16 Dose: 30 ml Benazepril HCl (Lotensin) 20 mg PO BID [facility] Stop: 11/30/16 09:44 Last Admin: 10/02/16 08:38 Dose: 20 mg Clonazepam (Klonopin) 1 mg PO Q8H PRN; Protocol PRN Reason: Anxiety Stop: 11/30/16 09:44 Last Admin: 10/02/16 14:35 Dose: 1 mg Duloxetine HCl (Cymbalta) 30 mg PO DAILY [facility] PRN Reason: Protocol Stop: 12/01/16 08:59 Last Admin: 10/02/16 09:00 Dose: Not Given Hydrochlorothiazide (Hctz) 25 mg PO DAILY [facility] Stop: 12/02/16 08:59 Morphine Sulfate (Morphine) 2 mg IVP Q6HR PRN PRN Reason: Severe Pain Stop: 11/29/16 22:12 Last Admin: 10/02/16 14:35 Dose: 2 mg Ondansetron HCl (Zofran) 4 mg IV Q6H PRN PRN Reason: Nausea / Vomiting Stop: 11/29/16 22:14 Pantoprazole Sodium (Protonix) 40 mg PO DAILY [facility] Stop: 11/30/16 15:44 Last Admin: 10/02/16 08:38 Dose: 40 mg Tramadol HCl (Ultram) 50 mg PO Q6HR PRN PRN Reason: moderate pain Stop: 11/29/16 22:11 Last Admin: 10/02/16 05:16 Dose: 50 mg Zolpidem Tartrate (Ambien) 10 mg PO HS PRN PRN Reason: Insomnia Stop: 11/29/16 22:27 Last Admin: 10/01/16 22:35 Dose: 10 mg General: Alert, Oriented x3, Cooperative, No acute distress HEENT: Atraumatic, PERRLA, EOMI Neck: Supple Cardiovascular: Regular rate Lungs: Clear to auscultation Abdomen: Bowel sounds, Soft Assessment/Plan - Assessment Assessment: UTI with hematuria BPH hx of lower back pain hx of HTN - Plan Plan: IV abxs monitor vitals labs
--- NOTE | 2016-10-02 21:04 | Consultation ---
DATE OF CONSULTATION: 10/01/2016 HISTORY OF PRESENT ILLNESS: The patient is 61-year-old. The patient says that he has lot of severe back pain. Then, he is noticing that he had urinary retention, he has a catheter. Also, had hematuria, at the moment seems to be cleared. He has had back pain on and off. Otherwise, he has had no difficulty with walking. He would not able to lift the legs for me. He says severe pain, but also weakness. The patient complains of numbness, a burning feeling in the whole body, especially the trunk and the legs. PAST MEDICAL HISTORY: Arthritis, history of hypertension. SOCIAL HISTORY: Does not smoke or drink. The patient is disabled. PHYSICAL EXAMINATION: VITAL SIGNS: Temperature 98.2, blood pressure 130/70, pulse is 76. NECK: Supple. No bruits. HEART: Sounds S1, S2. LUNGS: Clear. NEUROLOGIC: The patient is awake, alert. The patient answers questions. CRANIAL NERVE: Pupils react to light. Full eye movement. No nystagmus. No facial weakness. MOTOR: The patient will lift both arms up. Legs, he complains of a lot of pain. When I tried, he would not lift his leg up. He will flex at the knees. Foot flexion and extension is about 4/5. Reflexes are 1+ to 2, upper extremities. Knees are about 2+ to -3, ankles 1+ to 2. Withdrawal ____ Babinski. INVESTIGATIONS: CT scan of the head shows ____ at L4-L5, L5-S1. There is some mild spinal stenosis, but not severe enough to be causing problems with retention at the moment. 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 Also, complains of retention and urinary problems. In addition, physical therapy. If the pain persists, then I will recommend pain management also after the workup is done. JOB# [id number]
[2016-10-03] MEDS ORDERED: Potassium Chloride 20 mEq ER Tab PO ONE (07:52)
[2016-10-03] MEDS: Pantoprazole 40 mg EC Tab PO SCH (08:24)
[2016-10-03] MEDS: Morphine Sulfate 2 mg/mL 1mL Syr IVP PRN ×3 (08:26→21:16)
[2016-10-03] MEDS: Maalox 30 mL Cup PO PRN (08:35)
--- NOTE | 2016-10-03 14:26 | General Progress Note ---
Subjective - Review of Systems Events since last encounter: Pt. continues to c/o about pain Controlled with pain meds Subjective: Pt. c/o's of hematuria/pain Objective - Results Result Diagrams: 10/01/16 05:26 10/01/16 05:26 Recent Labs: Laboratory Last Values WBC 9.1 Th/cmm (4.8-10.8) 10/01/16 05:26 RBC 5.28 Mil/cmm (4.30-5.70) 10/01/16 05:26 Hgb 16.0 gm/dL (13.2-17.3) 10/01/16 05:26 Hct 47.2 % (39.0-49.0) 10/01/16 05:26 MCV 89.3 fl (80-99) 10/01/16 05:26 MCH 30.2 pg (26.0-30.0) H 10/01/16 05:26 MCHC Differential 33.8 pg (28.0-36.0) 10/01/16 05:26 RDW 12.7 % (11.5-20.0) 10/01/16 05:26 Plt Count 200 Th/cmm (150-400) D 10/01/16 05:26 MPV 7.9 fl 10/01/16 05:26 Neutrophils % 69.1 % (40.0-80.0) 09/30/16 15:55 Lymphocytes % 24.8 % (20.0-50.0) 09/30/16 15:55 Monocytes % 4.4 % (2.0-10.0) 09/30/16 15:55 Eosinophils % 0.2 % (0.0-5.0) 09/30/16 15:55 Basophils % 1.5 % (0.0-2.0) 09/30/16 15:55 Neutrophils (Manual) 66 % (40-80) 10/01/16 05:26 Lymphocytes 26 % (20-50) 10/01/16 05:26 Monocytes 7 % (2-10) 10/01/16 05:26 Eosinophils 1 % (0-5) 10/01/16 05:26 Platelet Estimate ADEQUATE (NORMAL) 10/01/16 05:26 PT 10.7 SECONDS (9.5-11.5) 09/30/16 15:55 INR 1.03 (0.5-1.4) 09/30/16 15:55 PTT (Actin FS) 25.2 SECONDS (26.0-38.0) L 09/30/16 15:55 Sodium 131 mEq/L (136-145) L 10/01/16 05:26 Potassium 3.3 mEq/L (3.5-5.1) L 10/01/16 05:26 Chloride 101 mEq/L (98-107) 10/01/16 05:26 Carbon Dioxide 19.8 mEq/L (21.0-31.0) L 10/01/16 05:26 Anion Gap 13.5 (7.0-16.0) 10/01/16 05:26 BUN 21 mg/dL (7-25) 10/01/16 05:26 Creatinine 0.7 mg/dL (0.7-1.3) 10/01/16 05:26 Est GFR ( Amer) > 60.0 ml/min (>90) 10/01/16 05:26 Est GFR (Non-Af Amer) > 60.0 ml/min 10/01/16 05:26 BUN/Creatinine Ratio 30.0 10/01/16 05:26 Glucose 115 mg/dL (70-105) H 10/01/16 05:26 Calcium 8.8 mg/dL (8.6-10.3) 10/01/16 05:26 Total Bilirubin 1.0 mg/dL (0.3-1.0) 09/30/16 15:55 AST 10 U/L (13-39) L 09/30/16 15:55 ALT 11 U/L (7-52) 09/30/16 15:55 Alkaline Phosphatase 60 U/L (34-104) 09/30/16 15:55 Troponin I 0.02 ng/mL (0.01-0.05) 09/30/16 15:55 Total Protein 7.6 gm/dL (6.0-8.3) 09/30/16 15:55 Albumin 4.5 gm/dL (4.2-5.5) 09/30/16 15:55 Globulin 3.1 gm/dL 09/30/16 15:55 Albumin/Globulin Ratio 1.5 (1.0-1.8) 09/30/16 15:55 Triglycerides 72 mg/dL (<150) 09/30/16 15:48 Cholesterol 281 mg/dL (<200) H 09/30/16 15:48 LDL Cholesterol Direct 259 mg/dL (75-193) H 09/30/16 15:48 HDL Cholesterol 32 mg/dL (23-92) 09/30/16 15:48 Prostate Specific Ag 0.1 ng/mL (0.0-4.0) 10/01/16 05:26 TSH 1.25 uIU/ml (0.34-5.60) 09/30/16 15:55 Urine Source CLEAN C 09/30/16 18:05 Urine Color DARK YELLOW 09/30/16 18:05 Urine Clarity HAZY (CLEAR) 09/30/16 18:05 Urine pH 5.5 09/30/16 18:05 Ur Specific [place] (1.005-1.030) 09/30/16 18:05 Urine Protein 30 mg/dL (NEGATIVE) H 09/30/16 18:05 Urine Glucose (UA) NEGATIVE mg/dL (NEGATIVE) 09/30/16 18:05 Urine Ketones >=80 mg/dL (NEGATIVE) H 09/30/16 18:05 Urine Blood MODERATE (NEGATIVE) H 09/30/16 18:05 Urine Nitrate NEGATIVE (NEGATIVE) 09/30/16 18:05 Urine Bilirubin MODERATE (NEGATIVE) H 09/30/16 18:05 Urine Urobilinogen 0.2 E.U./dL (0.2 - 1.0) 09/30/16 18:05 Ur Leukocyte Esterase NEGATIVE (NEGATIVE) 09/30/16 18:05 Urine RBC 50-100 /hpf (0-5) H 09/30/16 18:05 Urine WBC 0-2 /hpf (0-5) 09/30/16 18:05 Ur Epithelial Cells FEW /lpf (FEW) 09/30/16 18:05 Urine Bacteria FEW /hpf (NONE SEEN) 09/30/16 18:05 Urine Mucus FEW /lpf (FEW) 09/30/16 18:05 RPR NONREACTIVE (NONREACTIVE) 09/30/16 15:55 - Physical Exam Vitals and I&O: Vital Signs Temp 98.2 F 10/03/16 11:40 Pulse 69 10/03/16 11:40 Resp 17 10/03/16 11:40 BP 109/80 10/03/16 11:40 Pulse Ox 94 10/03/16 11:40 Intake & Output 10/02/16 10/03/16 10/03/16 18:59 06:59 18:59 Intake Total 800 400 Output Total 400 Balance 400 400 Intake: Oral 800 400 Output: Urine 400 Other: # Voids 3 Active Medications: Current Medications Al Hydrox/Mg Hydrox/Simethicone (Maalox) 30 ml PO Q6HR PRN PRN Reason: Abdominal Cramping Stop: 11/30/16 15:34 Last Admin: 10/03/16 08:35 Dose: 30 ml Benazepril HCl (Lotensin) 20 mg PO BID OSBALDO Stop: 11/30/16 09:44 Last Admin: 10/03/16 08:26 Dose: Not Given Clonazepam (Klonopin) 1 mg PO Q8H PRN; Protocol PRN Reason: Anxiety Stop: 11/30/16 09:44 Last Admin: 10/03/16 08:26 Dose: 1 mg Duloxetine HCl (Cymbalta) 30 mg PO DAILY OSBALDO PRN Reason: Protocol Stop: 12/01/16 08:59 Last Admin: 10/03/16 08:26 Dose: Not Given Hydrochlorothiazide (Hctz) 25 mg PO DAILY OSBALDO Stop: 12/02/16 08:59 Last Admin: 10/03/16 08:26 Dose: 25 mg Morphine Sulfate (Morphine) 2 mg IVP Q6HR PRN PRN Reason: Severe Pain Stop: 11/29/16 22:12 Last Admin: 10/03/16 08:26 Dose: 2 mg Ondansetron HCl (Zofran) 4 mg IV Q6H PRN PRN Reason: Nausea / Vomiting Stop: 11/29/16 22:14 Pantoprazole Sodium (Protonix) 40 mg PO DAILY OSBALDO Stop: 11/30/16 15:44 Last Admin: 10/03/16 08:24 Dose: 40 mg Tramadol HCl (Ultram) 50 mg PO Q6HR PRN PRN Reason: moderate pain Stop: 11/29/16 22:11 Last Admin: 10/03/16 12:35 Dose: 50 mg Zolpidem Tartrate (Ambien) 10 mg PO HS PRN PRN Reason: Insomnia Stop: 11/29/16 22:27 Last Admin: 10/02/16 22:35 Dose: 10 mg General: Alert, Oriented x3, Cooperative, No acute distress HEENT: Atraumatic, PERRLA, EOMI Neck: Supple Cardiovascular: Regular rate, Normal S1, Normal S2 Lungs: Clear to auscultation Abdomen: Bowel sounds, Soft Assessment/Plan - Assessment Assessment: UTI with hematuria BPH hx of lower back pain hx of HTN - Plan Plan: IV abxs monitor vitals labs
[2016-10-04] MEDS: Morphine Sulfate 2 mg/mL 1mL Syr IVP PRN ×2 (05:37→12:02)
[2016-10-04 05:46] LABS: % BASOPHILS 0.1 % (0.0-2.0); % EOSINOPHILS 2.7 % (0.0-5.0); % LYMPHOCYTES 35.9 % (20.0-50.0); % MONOCYTES 7.5 % (2.0-10.0); % NEUTROPHILS 53.8 % (40.0-80.0); HEMATOCRIT 43.8 % (39.0-49.0); HEMOGLOBIN 14.9 gm/dL (13.2-17.3); MEAN CORPUSCULAR HEMOGLOBIN 30.5 pg (26.0-30.0); MEAN CORPUSCULAR HGB CONC 33.9 pg (28.0-36.0); MEAN PLATELET VOLUME 7.3 fl; NEUTROPHILE ABSOLUTE 3.9 Th/cmm (1.8-8.0); RED BLOOD COUNT 4.87 Mil/cmm (4.30-5.70); RED CELL DISTRIBUTION WIDTH 12.9 % (11.5-20.0)
[2016-10-04 05:48] LABS: PLATELET COUNT 314 Th/cmm (150-400); WHITE BLOOD COUNT 7.1 Th/cmm (4.8-10.8)
[2016-10-04 05:58] LABS: ALB/GLOB RATIO 1.3 (1.0-1.8); ALKALINE PHOSPHATASE 49 U/L (34-104); ANION GAP 10.1 (7.0-16.0); BILIRUBIN,TOTAL 0.6 mg/dL (0.3-1.0); BUN - UREA NITROGEN 14 mg/dL (7-25); CALCIUM SERUM 9.1 mg/dL (8.6-10.3); CARBON DIOXIDE 27.9 mEq/L (21.0-31.0); CHLORIDE 101 mEq/L (98-107); CREATININE - SERUM 0.7 mg/dL (0.7-1.3); GLUCOSE 114 mg/dL (70-105); SGOT 8 U/L (13-39); SGPT/ALT 9 U/L (7-52); SODIUM SERUM 136 mEq/L (136-145)
[2016-10-04] MEDS ORDERED: Potassium Chloride 20 mEq ER Tab PO ONE (08:22)
[2016-10-04] MEDS: Pantoprazole 40 mg EC Tab PO SCH (09:29)
[2016-10-04 12:45] LABS: BUN - UREA NITROGEN 14 mg/dL (7-25); BUN/CREATININE RATIO 15.6; CALCIUM SERUM 9.3 mg/dL (8.6-10.3); CARBON DIOXIDE 27.6 mEq/L (21.0-31.0); CHLORIDE 101 mEq/L (98-107); CREATININE - SERUM 0.9 mg/dL (0.7-1.3); GLUCOSE 112 mg/dL (70-105); POTASSIUM SERUM 3.6 mEq/L (3.5-5.1); SODIUM SERUM 136 mEq/L (136-145)
--- NOTE | 2016-10-04 13:56 | General Progress Note ---
Subjective - Review of Systems Subjective: Pt. continues to c/o about pain Controlled by pain meds Objective - Results Result Diagrams: 10/04/16 05:08 10/04/16 12:00 Recent Labs: Laboratory Last Values WBC 7.1 Th/cmm (4.8-10.8) D 10/04/16 05:08 RBC 4.87 Mil/cmm (4.30-5.70) 10/04/16 05:08 Hgb 14.9 gm/dL (13.2-17.3) 10/04/16 05:08 Hct 43.8 % (39.0-49.0) 10/04/16 05:08 MCV 90.0 fl (80-99) 10/04/16 05:08 MCH 30.5 pg (26.0-30.0) H 10/04/16 05:08 MCHC Differential 33.9 pg (28.0-36.0) 10/04/16 05:08 RDW 12.9 % (11.5-20.0) 10/04/16 05:08 Plt Count 314 Th/cmm (150-400) D 10/04/16 05:08 MPV 7.3 fl 10/04/16 05:08 Neutrophils % 53.8 % (40.0-80.0) 10/04/16 05:08 Lymphocytes % 35.9 % (20.0-50.0) 10/04/16 05:08 Monocytes % 7.5 % (2.0-10.0) 10/04/16 05:08 Eosinophils % 2.7 % (0.0-5.0) 10/04/16 05:08 Basophils % 0.1 % (0.0-2.0) 10/04/16 05:08 Neutrophils (Manual) 66 % (40-80) 10/01/16 05:26 Lymphocytes 26 % (20-50) 10/01/16 05:26 Monocytes 7 % (2-10) 10/01/16 05:26 Eosinophils 1 % (0-5) 10/01/16 05:26 Platelet Estimate ADEQUATE (NORMAL) 10/01/16 05:26 PT 10.7 SECONDS (9.5-11.5) 09/30/16 15:55 INR 1.03 (0.5-1.4) 09/30/16 15:55 PTT (Actin FS) 25.2 SECONDS (26.0-38.0) L 09/30/16 15:55 Sodium 136 mEq/L (136-145) 10/04/16 12:00 Potassium 3.6 mEq/L (3.5-5.1) 10/04/16 12:00 Chloride 101 mEq/L (98-107) 10/04/16 12:00 Carbon Dioxide 27.6 mEq/L (21.0-31.0) 10/04/16 12:00 Anion Gap 11.0 (7.0-16.0) 10/04/16 12:00 BUN 14 mg/dL (7-25) 10/04/16 12:00 Creatinine 0.9 mg/dL (0.7-1.3) 10/04/16 12:00 Est GFR ( Amer) > 60.0 ml/min (>90) 10/04/16 12:00 Est GFR (Non-Af Amer) > 60.0 ml/min 10/04/16 12:00 BUN/Creatinine Ratio 15.6 10/04/16 12:00 Glucose 112 mg/dL (70-105) H 10/04/16 12:00 Calcium 9.3 mg/dL (8.6-10.3) 10/04/16 12:00 Total Bilirubin 0.6 mg/dL (0.3-1.0) 10/04/16 05:08 AST 8 U/L (13-39) L 10/04/16 05:08 ALT 9 U/L (7-52) 10/04/16 05:08 Alkaline Phosphatase 49 U/L (34-104) 10/04/16 05:08 Troponin I 0.02 ng/mL (0.01-0.05) 09/30/16 15:55 Total Protein 7.0 gm/dL (6.0-8.3) 10/04/16 05:08 Albumin 4.0 gm/dL (4.2-5.5) L 10/04/16 05:08 Globulin 3.0 gm/dL 10/04/16 05:08 Albumin/Globulin Ratio 1.3 (1.0-1.8) 10/04/16 05:08 Triglycerides 72 mg/dL (<150) 09/30/16 15:48 Cholesterol 281 mg/dL (<200) H 09/30/16 15:48 LDL Cholesterol Direct 259 mg/dL (75-193) H 09/30/16 15:48 HDL Cholesterol 32 mg/dL (23-92) 09/30/16 15:48 Prostate Specific Ag 0.1 ng/mL (0.0-4.0) 10/01/16 05:26 TSH 1.25 uIU/ml (0.34-5.60) 09/30/16 15:55 Urine Source CLEAN C 09/30/16 18:05 Urine Color DARK YELLOW 09/30/16 18:05 Urine Clarity HAZY (CLEAR) 09/30/16 18:05 Urine pH 5.5 09/30/16 18:05 Ur Specific [place] (1.005-1.030) 09/30/16 18:05 Urine Protein 30 mg/dL (NEGATIVE) H 09/30/16 18:05 Urine Glucose (UA) NEGATIVE mg/dL (NEGATIVE) 09/30/16 18:05 Urine Ketones >=80 mg/dL (NEGATIVE) H 09/30/16 18:05 Urine Blood MODERATE (NEGATIVE) H 09/30/16 18:05 Urine Nitrate NEGATIVE (NEGATIVE) 09/30/16 18:05 Urine Bilirubin MODERATE (NEGATIVE) H 09/30/16 18:05 Urine Urobilinogen 0.2 E.U./dL (0.2 - 1.0) 09/30/16 18:05 Ur Leukocyte Esterase NEGATIVE (NEGATIVE) 09/30/16 18:05 Urine RBC 50-100 /hpf (0-5) H 09/30/16 18:05 Urine WBC 0-2 /hpf (0-5) 09/30/16 18:05 Ur Epithelial Cells FEW /lpf (FEW) 09/30/16 18:05 Urine Bacteria FEW /hpf (NONE SEEN) 09/30/16 18:05 Urine Mucus FEW /lpf (FEW) 09/30/16 18:05 RPR NONREACTIVE (NONREACTIVE) 09/30/16 15:55 - Physical Exam Vitals and I&O: Vital Signs Temp 97.7 F 10/04/16 06:09 Pulse 80 10/04/16 06:09 Resp 18 10/04/16 06:09 BP 108/59 10/04/16 09:34 Pulse Ox 96 10/04/16 06:09 Intake & Output 10/03/16 10/04/16 10/04/16 18:59 06:59 18:59 Intake Total 800 100 360 Output Total 3 Balance 800 100 357 Intake: Oral 800 100 360 Output: Urine 3 Other: # Voids 3 1 # Bowel Movements 1 0 0 Active Medications: Current Medications Al Hydrox/Mg Hydrox/Simethicone (Maalox) 30 ml PO Q6HR PRN PRN Reason: Abdominal Cramping Stop: 11/30/16 15:34 Last Admin: 10/03/16 08:35 Dose: 30 ml Benazepril HCl (Lotensin) 20 mg PO BID OSBALDO Stop: 11/30/16 09:44 Last Admin: 10/04/16 09:34 Dose: Not Given Clonazepam (Klonopin) 1 mg PO Q8H PRN; Protocol PRN Reason: Anxiety Stop: 11/30/16 09:44 Last Admin: 10/04/16 09:41 Dose: 1 mg Duloxetine HCl (Cymbalta) 30 mg PO DAILY OSBALDO PRN Reason: Protocol Stop: 12/01/16 08:59 Last Admin: 10/04/16 09:29 Dose: 30 mg Hydrochlorothiazide (Hctz) 25 mg PO DAILY COUNT INCLUDES THE [facility] Stop: 12/02/16 08:59 Last Admin: 10/04/16 09:33 Dose: 25 mg Morphine Sulfate (Morphine) 2 mg IVP Q6HR PRN PRN Reason: Severe Pain Stop: 11/29/16 22:12 Last Admin: 10/04/16 12:02 Dose: 2 mg Ondansetron HCl (Zofran) 4 mg IV Q6H PRN PRN Reason: Nausea / Vomiting Stop: 11/29/16 22:14 Pantoprazole Sodium (Protonix) 40 mg PO DAILY COUNT INCLUDES THE [facility] Stop: 11/30/16 15:44 Last Admin: 10/04/16 09:29 Dose: 40 mg Tramadol HCl (Ultram) 50 mg PO Q6HR PRN PRN Reason: moderate pain Stop: 11/29/16 22:11 Last Admin: 10/03/16 12:35 Dose: 50 mg Zolpidem Tartrate (Ambien) 10 mg PO HS PRN PRN Reason: Insomnia Stop: 11/29/16 22:27 Last Admin: 10/03/16 22:27 Dose: 10 mg General: Alert, Oriented x3, Cooperative, No acute distress HEENT: Atraumatic, PERRLA, EOMI Neck: Supple Cardiovascular: Regular rate, Normal S1, Normal S2 Lungs: Clear to auscultation Abdomen: Bowel sounds, Soft Assessment/Plan - Assessment Assessment: UTI with hematuria BPH hx of lower back pain hx of HTN - Plan Plan: IV abxs monitor vitals labs
--- NOTE | 2016-10-04 14:28 | Diagnostic Imaging Report ---
MRI cervical spine without IV contrast HISTORY: Myelopathy COMPARISON: MRI thoracic spine the same day Technique: Multiplanar T1, T2, and STIR weighted sequences of the cervical spine were obtained without IV contrast. FINDINGS: No evidence of acute compression fracture or subluxation. No focal spinal cord abnormality identified. Heterogeneous red and fatty bone marrow is noted. There is multilevel disc desiccation. There is mild disc space loss of height at C3/C4. Moderate to advanced disc space loss of height is seen at C4/C5 and C5/C6. Level by level: C2/C3: No spinal canal or neural foraminal narrowing. Mild facet degenerative changes are noted. C3/C4: Moderate to advanced rightward facet degenerative changes with moderate to advanced right neural foraminal narrowing. No spinal canal narrowing. C4/C5: Moderate bilateral facet degenerative changes. There is moderate left and mild right neural foraminal narrowing. No spinal canal narrowing. C5/C6: 1 to 2 mm posterior disc osteophyte complex indenting the thecal sac causing mild spinal canal narrowing. There is mild facet degenerative changes. There is moderate to advanced right and mild left neural foraminal narrowing. C6/C7: 2 mm posterior disc osteophyte complex indenting the thecal sac and causing mild spinal canal narrowing. There is mild bilateral facet degenerative changes of mild bilateral neural foraminal narrowing. C7/T1: No spinal canal or neural foraminal narrowing. Sinus inflammatory disease is incidentally noted. IMPRESSION: Multilevel moderate to advanced degenerative changes with associated areas of spinal canal and neural foraminal encroachment as above. There is moderate to advanced rightward neural foraminal encroachment at C3/C4 and C5/C6. Please refer to above report for complete details. No focal spinal cord abnormality identified.
--- NOTE | 2016-10-04 14:30 | Diagnostic Imaging Report ---
MRI thoracic spine without IV contrast History: Myelopathy Comparison: MRI cervical spine performed the same day. Technique: Multiplanar T1, T2, and STIR-weighted sequences of the lumbar spine were obtained without IV contrast. Findings: No evidence of an acute compression fracture or subluxation. No focal spinal cord abnormality identified. No significant disc bulge is identified. Mild multilevel disc desiccation of the upper to midthoracic spine is noted. Mild facet degenerative changes also noted. A vertebral body hemangioma is incidentally noted at L1. IMPRESSION: Mild degenerative changes No significant disc bulge identified. No focal spinal cord abnormality identified.
--- NOTE | 2016-10-04 20:06 | Progress Notes ---
DATE: 10/04/2016 PSYCHIATRIC PROGRESS NOTE SUBJECTIVE: Chart reviewed and the patient interviewed. Also, discussed the patient's condition with the staff and reviewed records and labs. The patient is complaining of "pain in my shoulder." Also, said that MRI yesterday was not comfortable. Also, said that he had nightmares at night. The patient also still has questions about taking Cymbalta, but after further discussion with the patient, the patient agreed to take Cymbalta. He denies any side effects of medications and he understands benefits, side effects and alternatives. The patient denies any thoughts of suicide or homicide. Also, compliant with his treatment. ASSESSMENT: The patient is still depressed. TREATMENT PLAN: We will continue monitoring his behavior and his condition. Also, continue to work on his anxiety and will continue to follow up. JOB# [id number]
--- NOTE | 2016-10-05 02:04 | Progress Notes ---
DATE: 10/04/2016 NEUROLOGY PROGRESS NOTE SUBJECTIVE: The patient is lying in bed. The patient complains now shoulder pain. The patient complains of pain in the neck. He states that the morphine helps him, but not [place]. The patient otherwise is doing better and moving his extremities better. Some burning feeling in the body. MEDICATIONS: Benazepril, clonazepam, Cymbalta, morphine 2 mg IV q.6h., tramadol, and Ambien. PHYSICAL EXAMINATION: VITAL SIGNS: Temperature 97.7, blood pressure 120/70, pulse is around 90. NECK: Supple, no bruits. HEART: Sounds S1, S2. LUNGS: Clear. NEUROLOGIC: The patient is awake. Answers questions, speech normal. Cranial nerves: Pupils react to light. Motor examination: Upper extremity 5/5. Lower extremities 4+. Reflexes: Upper extremities 1+. ____ knees are about 2-3. Ankles 1. INVESTIGATIONS: 1. The patient's CT scan of the lumbar spine shows degenerative changes, worse at L4-L5 with 3-4 mm of posterior disc bulge. 2. MRI of the spine is pending. IMPRESSION: 1. Radiculopathy. 2. Myelopathy. PLAN: 1. MRI of the cervical, thoracic, and lumbar spine. 2. Physical therapy. 3. Urinary retention. JOB# [id number]
== END 2016-10-04 15:00 | disposition home or self-care (01) | DRG 690 ==
LOC: ER 15:09 → MSI 19:45
PROVIDERS: ADMIT Internal Medicine; ATTEND Internal Medicine
DX: N39.0 Urinary tract infection, site not specified (principal); G82.20 Paraplegia, unspecified; F32.1 Major depressive disorder, single episode, moderate; G95.9 Disease of spinal cord, unspecified; I10 Essential (primary) hypertension; M54.9 Dorsalgia, unspecified; M19.90 Unspecified osteoarthritis, unspecified site; R33.9 Retention of urine, unspecified; R31.9 Hematuria, unspecified; G47.00 Insomnia, unspecified; M54.10 Radiculopathy, site unspecified; Z90.49 Acquired absence of other specified parts of digestive tract
CPT/HCPCS: 36415-UA; 71010-TC; 72131-TC; 72141-TC; 72192-TC; 76770-TC; 76857-TC; 80048-TC; 80053-TC; 80061-TC; 81001-TC; 84153-90; 84443-TC; 84484-TC; 85007-TC; 85025-TC; 85027-TC; 85610-TC; 85730-TC; 86592-TC; J0696; J1885; J2270; Z7610; Z7610-TC